=== PATIENT | female | born 1940 | race American Indian/Alaskan Native ===

== ENCOUNTER 2017-05-07 13:59 | Observation (INO) | payer MEDICARE ==
[2017-05-07 14:09] VITALS: BMI 25.9
[2017-05-07] MEDS ORDERED: Dextrose 50% SYRINGE Inj (50 ml) IVP STA (14:25)
[2017-05-07] MEDS ORDERED: Dextrose 50% SYRINGE Inj (50 ml) ONE ×3 (14:27→22:03)
[2017-05-07 14:36] LABS: BASO % 0.4 % (0.0-2.0); EOS # 0.2 K/uL (0.0-0.7); EOS % 2.6 % (0.0-4.0); HEMATOCRIT 33.2 % (34.0-47.0); LYMPH # 1.3 K/uL (1.0-4.3); LYMPH % 15.3 % (20.0-40.0); MEAN CELL VOLUME 88.6 fL (81.0-99.0); MEAN CORPUSCULAR HEMOGLOBIN 29.7 pg (27.0-31.0); MEAN CORPUSCULAR HGB CONC 33.5 g/dL (33.0-37.0); MEAN PLATELET VOLUME 7.3 fL (7.2-11.7); MONO # 0.4 K/uL (0.0-0.8); MONO % 4.2 % (0.0-10.0); NRBC % 0.1 % (0.0-2.0); WHITE BLOOD COUNT 8.7 K/uL (4.8-10.8)
[2017-05-07 14:43] LABS: CHLORIDE 102 mmol/L (98-107)
[2017-05-07 14:44] LABS: POTASSIUM 3.5 mmol/L (3.6-5.2); SODIUM 143 mmol/L (132-148)
[2017-05-07 14:46] LABS: ALB/GLOB RATIO 1.1 (1.0-2.1); ALKALINE PHOSPHATASE 63 U/L (38-126); AST/SGOT 19 U/L (14-36); BILIRUBIN,TOTAL 0.4 mg/dL (0.2-1.3); BLOOD UREA NITROGEN 12 mg/dL (7-17); CARBON DIOXIDE 26 mmol/L (22-30); CHOLESTEROL 111 mg/dL (0-199); GFR AFRICAN-AMERICAN > 60; TOTAL PROTEIN 7.4 g/dL (6.3-8.3)
[2017-05-07 14:47] LABS: ALT/SGPT 20 U/L (9-52)
[2017-05-07 15:01] LABS: GLUCOSE,RANDOM 37 mg/dL (65-105)
--- NOTE | 2017-05-07 15:02 | RAD ---
HISTORY: transient slurred speech COMPARISON: Chest x-ray performed 03/04/17 TECHNIQUE: Chest, one view. FINDINGS: Examination limited by habitus. LUNGS: Increased lucencies especially within the bilateral upper lung aguiar compatible with underlying emphysema. No focal consolidation. 10 mm nodular density at the right lung base favored to reflect nipple shadow. Please note that chest x-ray has limited sensitivity for the detection of pulmonary masses. PLEURA: No significant pleural effusion identified. No definite pneumothorax . CARDIOVASCULAR: Heart size appears within normal limits. Dense atherosclerotic calcifications of the aortic knob. OSSEOUS STRUCTURES: Osseous demineralization. Degenerative changes of the spine and shoulders. VISUALIZED UPPER ABDOMEN: Unremarkable. OTHER FINDINGS: None. IMPRESSION: Emphysematous changes. 10 mm nodular density at the right lung base favored to reflect nipple shadow.
--- NOTE | 2017-05-07 15:03 | CT ---
PROCEDURE: CT HEAD WITHOUT CONTRAST. HISTORY: Code Stroke COMPARISON: None available. TECHNIQUE: Axial computed tomography images were obtained through the head/brain without intravenous contrast. Radiation dose: Total exam DLP = 793.79 mGy-cm. This CT exam was performed using one or more of the following dose reduction techniques: Automated exposure control, adjustment of the mA and/or kV according to patient size, and/or use of iterative reconstruction technique. FINDINGS: HEMORRHAGE: No intracranial hemorrhage. BRAIN: No cortical edema is identified or mass-effect. There is no loss of the corticomedullary differentiation throughout the cerebrum cerebellum or the brainstem fat matter. No suspicious extra-axial collection is identified in the midline brain and appears within normal limits diffusely. Note is made of expansion of the ventricular sulcal and cisternal spaces compatible with mild diffuse cerebral atrophy. Trace fat is seen within the anterior falx inferiorly. VENTRICLES: Unremarkable. No hydrocephalus. CALVARIUM: Unremarkable. PARANASAL SINUSES: Unremarkable as visualized. No significant inflammatory changes. MASTOID AIR CELLS: Unremarkable as visualized. No inflammatory changes. OTHER FINDINGS: None. IMPRESSION: Limited diffuse cerebral atrophy is appreciated. No acute findings are appreciated grossly. Incidental note is made of small amount of fat within the anterior falx inferiorly. Given clinical history, consider follow-up CT or MRI. Findings were discussed with , 05/07/2017 3 p.m..
--- NOTE | 2017-05-07 15:33 | C.PDOC ---
History Of Present Illness 76 year old female presents to the ED for evaluation of slurred speech and left- sided facial droop which was noted earlier today. Patient states she was watching TV at home when she received a phone call from her son. While on the phone, patient's son noted that she was having some trouble speaking; patient's speech seemed slurred and she was having trouble formulating her words. As patient was watching TV, she also noticed slight slurring of her vision. Patient had not attempted to get up, so she is unsure whether she has any numbness/weakness associated with walking. Patient's son remained on the phone with her until he arrived at her residence, after which ambulance was called, and patient was transported to ED for evaluation of a possible stroke. Patient reports her symptoms are slowly improving and denies headache, chest pain, and palpitations at this time. Time Seen by Provider: 05/07/17 14:10 Chief Complaint (Nursing): Weakness/Neurological Deficit History Per: Patient, EMS, Family (son ) History/Exam Limitations: no limitations Onset/Duration Of Symptoms: Unknown Current Symptoms Are (Timing): Still Present Activity At Onset Of Symptoms: Sitting Seizure Or Post-ictal Symptoms: None Additional History Per: Patient, EMS, Family - Symptoms Of CVA Associated Symptoms: Impaired Speech, New Vision Deficit(Left), New Vision Deficit(Right) Past Medical History Reviewed: Historical Data, Nursing Documentation, Vital Signs Vital Signs: Last Vital Signs Temp 97.8 F 05/07/17 14:25 Pulse 93 H 05/07/17 14:25 Resp 24 05/07/17 14:25 BP 162/77 H 05/07/17 14:25 Pulse Ox 100 05/07/17 15:46 - Medical History PMH: Anemia, HTN Denies: Chronic Kidney Disease Surgical History: No Surg Hx - [facility] Procedures ENDOSC POLYPECTOMY OF LG INTEST (02/16/15) ESOPHAGOGASTRODUODENOSCOPY [EGD] W/CLOSED BIOPSY (12/22/14) Family History: States: Unknown Family Hx - Social History Hx Alcohol Use: No Hx Substance Use: No - Immunization History Hx Tetanus Toxoid Vaccination: No Hx Influenza Vaccination: No Hx Pneumococcal Vaccination: No Review Of Systems Eyes: Positive for: Vision Change (slurred ) Cardiovascular: Negative for: Chest Pain, Palpitations Neurological: Positive for: Change in Speech (slurred ). Negative for: Headache Physical Exam - Physical Exam Appears: Non-toxic, No Acute Distress Skin: Normal Color, Warm, Dry Head: Atraumatic, Normacephalic Eye(s): bilateral: Normal Inspection Oral Mucosa: Moist Neck: Supple Chest: Symmetrical, No Deformity, No Tenderness Cardiovascular: Rhythm Regular, No Murmur Respiratory: Normal Breath Sounds, No Rales, No Rhonchi, No Wheezing Extremity: Normal ROM, No Tenderness, Capillary Refill (less than 2 seconds ), No Deformity, No Swelling Neurological/Psych: Oriented x3, No Normal Speech (thickened; able to form sentences ), Normal Cognition Gait: Steady Other Neurological Findings: Facial Palsy (subtle, left-sided ) ED Course And Treatment - Laboratory Results Result Diagrams: 05/07/17 14:27 05/07/17 14:27 Lab Interpretation: Abnormal (Glucosse 37, repeat POC glucose 119 after D50) ECG: Interpreted By Me ECG Rhythm: Sinus Rhythm (with left axis deviation) ECG Interpretation: No Acute Changes O2 Sat by Pulse Oximetry: 100 (on RA) Pulse Ox Interpretation: Normal - Radiology CXR: Viewed By Me, Read By Radiologist CXR Interpretation: Yes: COPD - CT Scan/US Head CT Other Rad Studies (CT/US): Read By Radiologist, Radiology Report Reviewed CT/US Interpretation: No evidence of CVA Progress Note: Code stroke called in ED. CT Head, EKG, CXR, and labs were ordered and reviewed. Aspirin PO administered. Lab results show patient has POC glucose level of 37 mg/dL. D50 IVP administered. On reassessment, patient is resting comfortably, showing no signs of distress and reports that all of her symptoms have resolved Reevaluation Time: 15:50 Reassessment Condition: Improved (Patient is asymptomatic.) - Physician Consult Information Time Consulting Physician Contacted: 15:52 Physician Contacted: Tangela Jennings NIHSS Stroke Scale - Date/Time Evaluation Performed Date Performed: 05/07/17 Time Performed: 14:00 When Was NIHSS Performed: Baseline - How Severe is the Stoke Level of Consciousness: 0=Alert LOC to Questions: 0=Both comments correct LOC to commands: 0=Obeys both correctly Best Gaze: 0=Normal Visual: 0=No visual loss Facial: 1=Minor asymmetry Motor Arm - Left: 0=No drift Motor Arm - Right: 0=No drift Motor Leg - Left: 0=No drift Motor Leg - Right: 0=No drift Limb Ataxia: 0=Absent Sensory: 0=Normal Best Language: 0=No aphasia Dysarthia: 1=Mild to moderate slurring Extinction & Inattention (Neglect): 0=Normal, no object Score: 2 Severity Of Stroke: 1-4= Minor Stroke Disposition - Disposition Disposition: HOSPITALIZED Disposition Time: 15:53 Condition: IMPROVED - POA Present On Arrival: Poor Glycemic Control - Clinical Impression Clinical Impression: Hypoglycemia associated with diabetes - Scribe Statement The provider has reviewed the documentation as recorded by the Scribe (Chandni Jennings) Provider Attestation: All medical record entries made by the Scribe were at my direction and personally dictated by me. I have reviewed the chart and agree that the record accurately reflects my personal performance of the history, physical exam, medical decision making, and the department course for this patient. I have also personally directed, reviewed, and agree with the discharge instructions and disposition.
[2017-05-07 19:17] VITALS: RESP 20
--- NOTE | 2017-05-07 19:47 | CP.PCM.HP ---
Past Patient History - Past Medical History & Family History Past Medical History?: Yes - Past Social History Smoking Status: Heavy Smoker > 10 Cigarettes Daily - CARDIAC Hx Hypertension: Yes - PULMONARY Hx Respiratory Disorders: No - NEUROLOGICAL Hx Neurological Disorder: No - HEENT Hx HEENT Problems: No - RENAL Hx Chronic Kidney Disease: No - ENDOCRINE/METABOLIC Hx Endocrine Disorders: Yes Hx Diabetes Mellitus Type 2: Yes - HEMATOLOGICAL/ONCOLOGICAL Hx Anemia: Yes - INTEGUMENTARY Hx Dermatological Problems: No - MUSCULOSKELETAL/RHEUMATOLOGICAL Hx Musculoskeletal Disorders: Yes Hx Gout: Yes - GASTROINTESTINAL Hx Gastrointestinal Disorders: Yes Other/Comment: CONSTIPATION - GENITOURINARY/GYNECOLOGICAL Hx Genitourinary Disorders: No - PSYCHIATRIC Hx Substance Use: No - SURGICAL HISTORY Hx Surgeries: Yes Hx Hysterectomy: Yes - ANESTHESIA Hx Anesthesia: Yes Hx Anesthesia Reactions: No Hx Malignant Hyperthermia: No Meds Allergies/Adverse Reactions: Allergies Allergy/AdvReac Type Severity Reaction Status Date / Time No Known Allergies Allergy Verified 05/07/17 14:08 Physical Exam - Constitutional Appears: Well - Head Exam Head Exam: ATRAUMATIC, NORMAL INSPECTION, NORMOCEPHALIC - Eye Exam Eye Exam: EOMI, Normal appearance, PERRL Pupil Exam: NORMAL ACCOMODATION, PERRL - ENT Exam ENT Exam: Mucous Membranes Moist, Normal Exam - Neck Exam Neck exam: Positive for: Normal Inspection - Respiratory Exam Respiratory Exam: Decreased Breath Sounds - Cardiovascular Exam Cardiovascular Exam: REGULAR RHYTHM, +S1, +S2 - GI/Abdominal Exam GI & Abdominal Exam: Diminished Bowel Sounds, Soft - Rectal Exam Rectal Exam: Deferred Results - Vital Signs Recent Vital Signs: Last Vital Signs Temp 98.2 F 05/07/17 19:16 Pulse 70 05/07/17 19:16 Resp 20 05/07/17 19:16 BP 137/73 05/07/17 19:16 Pulse Ox 100 05/07/17 19:16 - Labs Result Diagrams: 05/07/17 14:27 05/07/17 14:27 Labs: Laboratory Results - last 24 hr 05/07/17 05/07/17 05/07/17 14:26 14:27 14:27 WBC 8.7 RBC 3.75 L Hgb 11.1 Hct 33.2 L MCV 88.6 MCH 29.7 MCHC 33.5 RDW 16.0 H Plt Count 295 MPV 7.3 Neut % (Auto) 77.5 H Lymph % (Auto) 15.3 L [place] % (Auto) 4.2 Eos % (Auto) 2.6 Baso % (Auto) 0.4 Neut # 6.7 Lymph # 1.3 [place] # 0.4 Eos # 0.2 Baso # 0.0 PT 11.1 INR 1.0 APTT 35 H Sodium Potassium Chloride Carbon Dioxide Anion Gap BUN Creatinine Est GFR ( Amer) Est GFR (Non-Af Amer) POC Glucose (mg/dL) 27 L* Random Glucose Hemoglobin A1c Calcium Total Bilirubin AST ALT Alkaline Phosphatase Troponin I Total Protein Albumin Globulin Albumin/Globulin Ratio Triglycerides Cholesterol LDL Cholesterol Direct HDL Cholesterol Blood Type Antibody Screen 05/07/17 05/07/17 05/07/17 14:27 14:27 14:27 WBC RBC Hgb Hct MCV MCH MCHC RDW Plt Count MPV Neut % (Auto) Lymph % (Auto) [place] % (Auto) Eos % (Auto) Baso % (Auto) Neut # Lymph # [place] # Eos # Baso # PT INR APTT Sodium 143 Potassium 3.5 L Chloride 102 Carbon Dioxide 26 Anion Gap 19 BUN 12 Creatinine 0.7 Est GFR ( Amer) > 60 Est GFR (Non-Af Amer) > 60 POC Glucose (mg/dL) Random Glucose 37 L* Hemoglobin A1c 5.7 Calcium 10.0 Total Bilirubin 0.4 AST 19 ALT 20 Alkaline Phosphatase 63 Troponin I < 0.0120 Total Protein 7.4 Albumin 3.9 Globulin 3.5 Albumin/Globulin Ratio 1.1 Triglycerides 118 Cholesterol 111 LDL Cholesterol Direct 57 HDL Cholesterol 48 Blood Type O POSITIVE Antibody Screen Negative 05/07/17 15:06 WBC RBC Hgb Hct MCV MCH MCHC RDW Plt Count MPV Neut % (Auto) Lymph % (Auto) [place] % (Auto) Eos % (Auto) Baso % (Auto) Neut # Lymph # [place] # Eos # Baso # PT INR APTT Sodium Potassium Chloride Carbon Dioxide Anion Gap BUN Creatinine Est GFR ( Amer) Est GFR (Non-Af Amer) POC Glucose (mg/dL) 119 H Random Glucose Hemoglobin A1c Calcium Total Bilirubin AST ALT Alkaline Phosphatase Troponin I Total Protein Albumin Globulin Albumin/Globulin Ratio Triglycerides Cholesterol LDL Cholesterol Direct HDL Cholesterol Blood Type Antibody Screen
[2017-05-07] MEDS ORDERED: Influenza Vaccine 60 mcg/0.5 mL SYR (4YR UP) IM ONE (21:06)
[2017-05-07] MEDS ORDERED: Potassium Chloride 20 mEq ER Tab PO STA (21:38)
[2017-05-07] MEDS: (Novolog) Insulin Aspart, Recombinant 100 u/ml 10 ml vial SC SCH (22:01)
[2017-05-07] MEDS ORDERED: Dextrose 50% SYRINGE Inj (50 ml) IV STA ×2 (22:03→22:04)
[2017-05-08] MEDS: (Novolog) Insulin Aspart, Recombinant 100 u/ml 10 ml vial SC SCH ×4 (08:54→21:18)
--- NOTE | 2017-05-08 09:30 | CP.PCM.PN ---
Subjective - Date & Time of Evaluation Date of Evaluation: 05/08/17 Time of Evaluation: 08:20 - Subjective Subjective: clinically same Objective - Vital Signs/Intake and Output Vital Signs (last 24 hours): Temp Pulse Resp BP Pulse Ox 98.4 F 75 20 144/78 100 05/08/17 07:40 05/08/17 07:40 05/08/17 07:40 05/08/17 07:40 05/08/17 07:40 - Medications Medications: Current Medications Aspirin (Ecotrin) 81 mg PO DAILY [facility] Enoxaparin Sodium (Lovenox) 40 mg SC DAILY [facility] Famotidine (Pepcid) 20 mg PO DAILY [facility] Hydrochlorothiazide (Microzide) 12.5 mg PO DAILY [facility] Dextrose (Dextrose 10% In Water) 1,000 mls @ 10 mls/hr IV .Q24H [facility] Last Admin: 05/07/17 22:12 Dose: 10 mls/hr Insulin Aspart (Novolog) 0 unit SC ACHS [facility] PRN Reason: Protocol Last Admin: 05/07/17 22:01 Dose: Not Given Lisinopril (Zestril) 10 mg PO DAILY [facility] Pneumococcal Polyvalent Vaccine (Pneumovax 23 Vaccine) 0.5 ml IM .ONCE ONE Stop: 05/09/17 10:01 Rosuvastatin Calcium (Crestor) 10 mg PO HS [facility] Last Admin: 05/07/17 21:53 Dose: 10 mg - Labs Labs: 05/07/17 14:27 05/07/17 14:27 PT 11.1 SECONDS (9.7-12.2) 05/07/17 14:27 INR 1.0 05/07/17 14:27 APTT 35 SECONDS (21-34) H 05/07/17 14:27 - Constitutional Appears: Well - Head Exam Head Exam: ATRAUMATIC, NORMAL INSPECTION, NORMOCEPHALIC - Eye Exam Eye Exam: EOMI, Normal appearance, PERRL Pupil Exam: NORMAL ACCOMODATION, PERRL - ENT Exam ENT Exam: Mucous Membranes Moist, Normal Exam - Neck Exam Neck Exam: Full ROM, Normal Inspection. absent: Lymphadenopathy - Respiratory Exam Respiratory Exam: Decreased Breath Sounds - Cardiovascular Exam Cardiovascular Exam: REGULAR RHYTHM, +S1, +S2 - GI/Abdominal Exam GI & Abdominal Exam: Soft, Diminished Bowel Sounds - Rectal Exam Rectal Exam: Deferred
--- NOTE | 2017-05-08 10:51 | CP.PCM.CON ---
History of Present Illness - History of Present Illness History of Present Illness: I was asked to see patient by Dr Jennings. Patient is a 76 year old female with PMH HTN, hypercholesterolemia, DM who presents with slurred speech. The patient states she was talking to her son when she was noted to have slurred speech. The son made her stay on the phone, and was noted to have difficulty opening the door. Symptoms resolved but the patient was brought to the hospital. The patient denies chest pain and palpitations. Review of Systems - Constitutional Constitutional: absent: As Per HPI, Anorexia, Chills, Daytime Sleepiness, Excessive Sweating, Fatigue, Fever, Frequent Falls, Headache, Increased Appetite , Lethargy, Malaise, Night Sweats, Snoring, Sleep Apnea, Weight Gain, Weight Loss, Weakness, Other - EENT Eyes: absent: As Per HPI, Blind Spots, Blurred Vision, Change in Vision, Decreased Night Vision, Diplopia, Discharge, Dry Eye, Exophthalmos, Floaters, Irritation, Itchy Eyes, Loss of Peripheral Vision, Pain, Photophobia, Requires Corrective Lenses, Sees Flashes, Spots in Vision, Tunnel Vision, Other Visual Disturbances, Loss of Vision, Other Ears: absent: As Per HPI, Decreased Hearing, Ear Discharge, Ear Pain, Tinnitus, Abnormal Hearing, Disequilibrium, Dizziness, Other Nose/Mouth/Throat: absent: As Per HPI, Epistaxis, Nasal Congestion, Nasal Discharge, Nasal Obstruction, Nasal Trauma, Nose Pain, Post Nasal Drip, Sinus Pain, Sinus Pressure, Bleeding Gums, Change in Voice, Dental Pain, Dry Mouth, Dysphagia, Halitosis, Hoarsness, Lip Swelling, Mouth Lesions, Mouth Pain, Odynophagia, Sore Throat, Throat Swelling, Tongue Swelling, Facial Pain, Neck Pain, Neck Mass, Other - Cardiovascular Cardiovascular: absent: As Per HPI, Acrocyanosis, Chest Pain, Chest Pain at Rest , Chest Pain with Activity, Claudication, Diaphoresis, Dyspnea, Dyspnea on Exertion, Edema, Irregular Heart Rhythm, Pain Radiating to Arm/Neck/Jaw, Leg Edema, Leg Ulcers, Lightheadedness, Orthopnea, Palpitations, Paroxysmal Nocturnal Dyspnea, Pedal Edema, Radiating Pain, Rapid Heart Rate, Slow Heart Rate, Syncope, Other - Respiratory Respiratory: absent: As Per HPI, Cough, Dyspnea, Hemoptysis, Dyspnea on Exertion , Wheezing, Snoring, Stridor, Pain on Inspiration, Chest Congestion, Excessive Mucous Production, Change in Mucous Color, Pain with Coughing, Other - Gastrointestinal Gastrointestinal: absent: As Per HPI, Abdominal Pain, Belching, Bloating, Change in Bowel Habits, Change in Stool Character, Coffee Ground Emesis, Constipation, Cramping, Diarrhea, Dyspepsia, Dysphagia, Early Satiety, Excessive Flatus, Fecal Incontinence, Heartburn, Hematemesis, Hematochezia, Loose Stools, Melena, Nausea, Odynophagia, Temesmus, Vomiting, Other - Genitourinary Genitourinary: absent: As Per HPI, Change in Urinary Stream, Difficulty Urinating, Dysuria, Flank Pain, Hematuria, Pyuria, Nocturia, Urinary Incontinence, Urinary Frequency, Urinary Hesitance, Urinary Urgency, Voiding Freq/Small Amts, Freq UTI, Hx Renal/Bladder Calculi, Hx /Renal Surgery, Bladder Distension, Other - Musculoskeletal Musculoskeletal: absent: As Per HPI, Abnormal Gait, Arthralgias, Atrophy, Back Pain, Deformity, Joint Swelling, Limited Range of Motion, Loss of Height, Muscle Cramps, Muscle Weakness, Myalgias, Neck Pain, Numbness, Radiating Pain into Limb, Stiffness, Tingling, Other - Integumentary Integumentary: absent: As Per HPI, Acne, Alopecia, Bleeding Lesions, Change in Hair, Change in Nails, Change in Pigmentation, Changing Lesions, Dry Skin, Erythema, Furuncle, Hirsutism, Lesions, New Lesions, Non-Healing Lesions, Photosensitivity, Pruritus, Rash, Skin Pain, Skin Ulcer, Sores, Striae, Swelling , Unusual Bruising, Wounds, Jaundice, Other - Neurological Neurological: Abnormal Speech - Psychiatric Psychiatric: absent: As Per HPI, Abnormal Sleep Pattern, Anhedonia, Anxiety, Auditory Hallucinations, Behavioral Changes, Change in Appetite, Change in Libido, Confusion, Depression, Difficulty Concentrating, Hallucinations, Homicidal Ideation, Hopelessness, Irritability, Memory Loss, Mood Swings, Panic Attacks, Paranoia, Suicidal Ideation, Visual Hallucinations, Tactile Hallucinations, Other - Endocrine Endocrine: absent: As Per HPI, Change in Body Appearance, Change in Libido, Cold Intolorance, Deepening of Voice, Excessive Sweating, Fatigue, Flushing, Heat Intolorance, Increase in Ring/Shoe/Hat Size, Palpitations, Polydipsia, Polyphagia, Polyuria, Other - Hematologic/Lymphatic Hematologic: absent: As Per HPI, Easy Bleeding, Easy Bruising, Lymphadenopathy, Other Past Patient History - Past Medical History & Family History Past Medical History?: Yes - Past Social History Smoking Status: Light Smoker < 10 Cigarettes Daily - CARDIAC Hx Hypertension: Yes - PULMONARY Hx Respiratory Disorders: No - NEUROLOGICAL Hx Neurological Disorder: No - HEENT Hx HEENT Problems: No - RENAL Hx Chronic Kidney Disease: No - ENDOCRINE/METABOLIC Hx Endocrine Disorders: Yes Hx Diabetes Mellitus Type 2: Yes - HEMATOLOGICAL/ONCOLOGICAL Hx Anemia: Yes - INTEGUMENTARY Hx Dermatological Problems: No - MUSCULOSKELETAL/RHEUMATOLOGICAL Hx Falls: No - GASTROINTESTINAL Hx Gastrointestinal Disorders: Yes Other/Comment: CONSTIPATION - GENITOURINARY/GYNECOLOGICAL Hx Genitourinary Disorders: No - PSYCHIATRIC Hx Substance Use: No - SURGICAL HISTORY Hx Surgeries: Yes Hx Hysterectomy: Yes - ANESTHESIA Hx Anesthesia: Yes Hx Anesthesia Reactions: No Hx Malignant Hyperthermia: No Meds Allergies/Adverse Reactions: Allergies Allergy/AdvReac Type Severity Reaction Status Date / Time No Known Allergies Allergy Verified 05/07/17 14:08 - Medications Medications: Current Medications Aspirin (Ecotrin) 81 mg PO DAILY [facility] Enoxaparin Sodium (Lovenox) 40 mg SC DAILY [facility] Famotidine (Pepcid) 20 mg PO DAILY [facility] Hydrochlorothiazide (Microzide) 12.5 mg PO DAILY [facility] Dextrose (Dextrose 10% In Water) 1,000 mls @ 10 mls/hr IV .Q24H [facility] Last Admin: 05/07/17 22:12 Dose: 10 mls/hr Insulin Aspart (Novolog) 0 unit SC ACHS [facility] PRN Reason: Protocol Last Admin: 05/07/17 22:01 Dose: Not Given Lisinopril (Zestril) 10 mg PO DAILY [facility] Pneumococcal Polyvalent Vaccine (Pneumovax 23 Vaccine) 0.5 ml IM .ONCE ONE Stop: 05/09/17 10:01 Rosuvastatin Calcium (Crestor) 10 mg PO [facility] Last Admin: 05/07/17 21:53 Dose: 10 mg Physical Exam - Constitutional Appears: Non-toxic - Head Exam Head Exam: NORMAL INSPECTION - Eye Exam Eye Exam: Normal appearance - ENT Exam ENT Exam: Mucous Membranes Moist - Neck Exam Neck exam: Positive for: Full Rom - Respiratory Exam Respiratory Exam: NORMAL BREATHING PATTERN - Cardiovascular Exam Cardiovascular Exam: REGULAR RHYTHM - GI/Abdominal Exam GI & Abdominal Exam: Normal Bowel Sounds - Rectal Exam Rectal Exam: Deferred - Extremities Exam Extremities exam: Positive for: pedal pulses present - Back Exam Back exam: NORMAL INSPECTION - Neurological Exam Neurological exam: Alert, Oriented x3 - Psychiatric Exam Psychiatric exam: Normal Affect - Skin Skin Exam: Normal Color Results - Vital Signs Recent Vital Signs: Last Vital Signs Temp 98.4 F 05/08/17 07:40 Pulse 75 05/08/17 07:40 Resp 20 05/08/17 07:40 BP 144/78 05/08/17 07:40 Pulse Ox 100 05/08/17 07:40 - Labs Result Diagrams: 05/07/17 14:27 05/07/17 14:27 Labs: Laboratory Results - last 24 hr 05/07/17 05/07/17 05/07/17 14:26 14:27 14:27 WBC 8.7 RBC 3.75 L Hgb 11.1 Hct 33.2 L MCV 88.6 MCH 29.7 MCHC 33.5 RDW 16.0 H Plt Count 295 MPV 7.3 Neut % (Auto) 77.5 H Lymph % (Auto) 15.3 L Phillips % (Auto) 4.2 Eos % (Auto) 2.6 Baso % (Auto) 0.4 Neut # 6.7 Lymph # 1.3 Phillips # 0.4 Eos # 0.2 Baso # 0.0 PT 11.1 INR 1.0 APTT 35 H Sodium Potassium Chloride Carbon Dioxide Anion Gap BUN Creatinine Est GFR ( Amer) Est GFR (Non-Af Amer) POC Glucose (mg/dL) 27 L* Random Glucose Hemoglobin A1c Calcium Total Bilirubin AST ALT Alkaline Phosphatase Troponin I Total Protein Albumin Globulin Albumin/Globulin Ratio Triglycerides Cholesterol LDL Cholesterol Direct HDL Cholesterol Blood Type Antibody Screen 05/07/17 05/07/17 05/07/17 14:27 14:27 14:27 WBC RBC Hgb Hct MCV MCH MCHC RDW Plt Count MPV Neut % (Auto) Lymph % (Auto) Phillips % (Auto) Eos % (Auto) Baso % (Auto) Neut # Lymph # Phillips # Eos # Baso # PT INR APTT Sodium 143 Potassium 3.5 L Chloride 102 Carbon Dioxide 26 Anion Gap 19 BUN 12 Creatinine 0.7 Est GFR ( Amer) > 60 Est GFR (Non-Af Amer) > 60 POC Glucose (mg/dL) Random Glucose 37 L* Hemoglobin A1c 5.7 Calcium 10.0 Total Bilirubin 0.4 AST 19 ALT 20 Alkaline Phosphatase 63 Troponin I < 0.0120 Total Protein 7.4 Albumin 3.9 Globulin 3.5 Albumin/Globulin Ratio 1.1 Triglycerides 118 Cholesterol 111 LDL Cholesterol Direct 57 HDL Cholesterol 48 Blood Type O POSITIVE Antibody Screen Negative 05/07/17 05/07/17 05/07/17 15:06 21:58 22:22 WBC RBC Hgb Hct MCV MCH MCHC RDW Plt Count MPV Neut % (Auto) Lymph % (Auto) Phillips % (Auto) Eos % (Auto) Baso % (Auto) Neut # Lymph # Phillips # Eos # Baso # PT INR APTT Sodium Potassium Chloride Carbon Dioxide Anion Gap BUN Creatinine Est GFR ( Amer) Est GFR (Non-Af Amer) POC Glucose (mg/dL) 119 H 23 L* 273 H Random Glucose Hemoglobin A1c Calcium Total Bilirubin AST ALT Alkaline Phosphatase Troponin I Total Protein Albumin Globulin Albumin/Globulin Ratio Triglycerides Cholesterol LDL Cholesterol Direct HDL Cholesterol Blood Type Antibody Screen 05/07/17 05/08/17 05/08/17 23:55 00:45 01:50 WBC RBC Hgb Hct MCV MCH MCHC RDW Plt Count MPV Neut % (Auto) Lymph % (Auto) Phillips % (Auto) Eos % (Auto) Baso % (Auto) Neut # Lymph # Phillips # Eos # Baso # PT INR APTT Sodium Potassium Chloride Carbon Dioxide Anion Gap BUN Creatinine Est GFR ( Amer) Est GFR (Non-Af Amer) POC Glucose (mg/dL) 105 90 100 Random Glucose Hemoglobin A1c Calcium Total Bilirubin AST ALT Alkaline Phosphatase Troponin I Total Protein Albumin Globulin Albumin/Globulin Ratio Triglycerides Cholesterol LDL Cholesterol Direct HDL Cholesterol Blood Type Antibody Screen 05/08/17 05/08/17 02:45 07:11 WBC RBC Hgb Hct MCV MCH MCHC RDW Plt Count MPV Neut % (Auto) Lymph % (Auto) Phillips % (Auto) Eos % (Auto) Baso % (Auto) Neut # Lymph # Phillips # Eos # Baso # PT INR APTT Sodium Potassium Chloride Carbon Dioxide Anion Gap BUN Creatinine Est GFR ( Amer) Est GFR (Non-Af Amer) POC Glucose (mg/dL) 146 H 122 H Random Glucose Hemoglobin A1c Calcium Total Bilirubin AST ALT Alkaline Phosphatase Troponin I Total Protein Albumin Globulin Albumin/Globulin Ratio Triglycerides Cholesterol LDL Cholesterol Direct HDL Cholesterol Blood Type Antibody Screen - EKG Data EKG Interpreted by: Myself EKG shows normal: Sinus rhythm Assessment & Plan (1) Dysarthria Assessment and Plan: patient has risk factors for CVA. I discussed risk factors. I will obtain echocardiogram. continue statin therapy. Status: Acute (2) Hypercholesterolemia Assessment and Plan: statin therapy Status: Acute
[2017-05-08] MEDS: Enoxaparin 40 mg Syringe SC SCH (10:55)
--- NOTE | 2017-05-08 15:34 | CARD ---
APPROVED REPORT EKG Measurement Heart [id number] <Conclusion> Normal sinus rhythm Left axis deviation Abnormal ECG
--- NOTE | 2017-05-08 16:15 | CON ---
NEUROLOGY CONSULTATION CHIEF COMPLAINT: Slurred speech. HISTORY OF PRESENT ILLNESS: This is a 76-year-old woman with past medical history of type 2 diabetes mellitus, hypertension, COPD, chronic smoker, who presented to the hospital, because she was watching TV at home when received a phone call from her son. While she was on the phone, she noted to have some trouble speaking, getting out her words and slurring and felt difficult to form any words and felt lightheaded and generalized weakness; and therefore, came to the hospital for further evaluation. It was found that she had a blood sugar of 27 and then was given D50 now which her blood sugars are normalized. She continues to smoke. No focal weakness of the extremity. She has evidence of diabetic peripheral neuropathy on examination. CAT scan of the head showed no acute intracranial abnormalities. No pronator drift seen on the neuro exam. ALLERGIES: NO KNOWN DRUG ALLERGIES. SOCIAL HISTORY: No illicit drug use. No EtOH abuse. She is a chronic smoker. FAMILY HISTORY: Noncontributory. PAST MEDICAL HISTORY: Hypertension, diabetes type 2, COPD, hyperlipidemia. REVIEW OF SYSTEMS: A 14-point review of system is negative except as in the HPI. PHYSICAL EXAMINATION: VITAL SIGNS: Temperature 98.4, pulse rate 75, blood pressure 144/78, respirations 20, oxygen saturation 97% via room air. GENERAL: The patient sitting up in bed, in no acute distress. HEENT: Atraumatic and normocephalic. PERRLA. Extraocular muscles are intact. NECK: Supple. No JVD. No adenopathy noted. LUNGS: Clear to auscultation. No adventitious sounds. HEART: S1 and S2, normal rate and rhythm. No murmurs, rubs, or gallops. ABDOMEN: Soft, nontender, and nondistended. Bowel sounds are present. EXTREMITIES: No clubbing. No cyanosis. Peripheral pulses are 2+ felt bilaterally. NEUROLOGIC: The patient is alert, oriented to person, place, month and years. Speech is fluent without any errors. Cranial nerves II through XII are intact. Motor exam: Moves all extremities equally. No pronator drift seen. Sensory exam: Decreased light touch, pinprick up to calves bilaterally. Decreased vibration of the toes. DTRs are 2+ throughout, 1 at the ankles and knees. Coordination: [id number] intact. Gait is deferred for now. LABORATORY DATA: Today's blood sugar is 199. ASSESSMENT AND PLAN: This is an 76-year-old woman with history of type 2 diabetes mellitus, dyslipidemia, chronic obstructive pulmonary disease, chronic smoker, came in with slurring of speech, difficult to form any words, found to be hypoglycemic with a blood sugar of 27, was given amp of D50 and now is doing much better. No further slurring of speech. No focal weakness of the extremities. Her symptoms are likely secondary to transient hypoglycemic event causing stroke-like symptoms. At this time, I recommend; 1. Keep blood sugars between 140 to 180. 2. Aspirin 81 mg p.o. daily as well as Crestor 10 mg p.o. at bedtime for a stroke prevention. 3. Diabetic education given. 4. Monitor electrolytes, correct accordingly and continue current present medical management. Thank you for this consult. Rico Perez MD
[2017-05-08] MEDS: Potassium Chloride 20 mEq ER Tab PO SCH (17:00)
[2017-05-09] MEDS: (Novolog) Insulin Aspart, Recombinant 100 u/ml 10 ml vial SC SCH (07:24)
[2017-05-09 07:25] VITALS: BP 144/78; PULSE 78; TEMP 98.6; O2SAT 100
[2017-05-09] MEDS ORDERED: Dextrose 50% SYRINGE Inj (50 ml) IV PRN (07:26)
[2017-05-09] MEDS ORDERED: Glucagon Recombinant 1 mg Inj IM PRN (07:26)
--- NOTE | 2017-05-09 07:28 | CP.PCM.PN ---
Subjective - Date & Time of Evaluation Date of Evaluation: 05/09/17 Time of Evaluation: 09:34 - Subjective Subjective: Patient seen and examiined at bedside this AM; she is feeling 100% like her regular self and would like to go home. The patient is stable for discharge. Objective - Vital Signs/Intake and Output Vital Signs (last 24 hours): Temp Pulse Resp BP Pulse Ox 98.5 F 86 20 136/75 98 05/09/17 00:00 05/09/17 00:00 05/09/17 00:00 05/09/17 00:00 05/09/17 00:00 Intake and Output: 05/09/17 05/09/17 06:59 18:59 Intake Total 380 Balance 380 - Medications Medications: Current Medications Aspirin (Ecotrin) 81 mg PO DAILY [facility] Last Admin: 05/08/17 10:54 Dose: 81 mg Enoxaparin Sodium (Lovenox) 40 mg SC DAILY [facility] Last Admin: 05/08/17 10:55 Dose: 40 mg Famotidine (Pepcid) 20 mg PO DAILY [facility] Last Admin: 05/08/17 10:54 Dose: 20 mg Hydrochlorothiazide (Microzide) 12.5 mg PO DAILY [facility] Last Admin: 05/08/17 10:54 Dose: 12.5 mg Dextrose (Dextrose 10% In Water) 1,000 mls @ 10 mls/hr IV .Q24H [facility] Last Admin: 05/07/17 22:12 Dose: 10 mls/hr Insulin Aspart (Novolog) 0 unit SC ACHS [facility] PRN Reason: Protocol Last Admin: 05/08/17 21:18 Dose: Not Given Lisinopril (Zestril) 10 mg PO DAILY [facility] Last Admin: 05/08/17 10:54 Dose: 10 mg Pneumococcal Polyvalent Vaccine (Pneumovax 23 Vaccine) 0.5 ml IM .ONCE ONE Stop: 05/09/17 10:01 Potassium Chloride (K-Dur 20 Meq Er Tab) 20 meq PO DAILY [facility] Last Admin: 05/08/17 17:00 Dose: 20 meq Rosuvastatin Calcium (Crestor) 10 mg PO HS [facility] Last Admin: 05/08/17 21:15 Dose: 10 mg - Labs Labs: 05/07/17 14:27 05/07/17 14:27 PT 11.1 SECONDS (9.7-12.2) 05/07/17 14:27 INR 1.0 05/07/17 14:27 APTT 35 SECONDS (21-34) H 05/07/17 14:27 - Constitutional Appears: Well, Non-toxic - Head Exam Head Exam: ATRAUMATIC - Eye Exam Eye Exam: EOMI Pupil Exam: PERRL - ENT Exam ENT Exam: Mucous Membranes Moist - Neck Exam Neck Exam: Full ROM - Respiratory Exam Respiratory Exam: Clear to Ausculation Bilateral - Cardiovascular Exam Cardiovascular Exam: REGULAR RHYTHM - GI/Abdominal Exam GI & Abdominal Exam: Soft - Rectal Exam Rectal Exam: Deferred - Extremities Exam Extremities Exam: Full ROM. absent: Calf Tenderness - Back Exam Back Exam: absent: CVA tenderness (L), CVA tenderness (R) - Neurological Exam Neurological Exam: Alert, Awake, CN II-XII Intact, Normal Gait, Oriented x3 - Psychiatric Exam Psychiatric exam: Normal Affect Assessment and Plan - Assessment and Plan (Free Text) Assessment: 76yo F admitted for syncopal episode Syncopal Episode -blood sugar 27 on arrival; mentation improved after glucose -Dr. Jauregui; Neurology; states transient episode of weakness 2/2 to hypoglycemia -c/w aspirin and statin for primary stroke prevention and glucose control -Head CT negative for any acute changes Diabetes; chronic -RISS -hypoglycemia protocol HLD; chronic -c/w crestor HTN; chronic -c/w lisinopril and hctz Prophylaxis -Lovenox -Pepcid -Heart Healthy Diet All management as per Dr. Linh Jennings The patient is stable for discharge as per Dr. Linh Jennings. She can resume all of her home meds from before. Patient was explained to eat more frequent but small meals throughout the day because she has diabetes and her medicine can lower her blood sugar (especially the glipizide) Patient verbalized understanding. She will need to see her PMD within the week. -her cat scan recommended a follow up cat scan if symptoms persist; however patient is back to baseline
[2017-05-09] MEDS ORDERED: Influenza Vaccine 60 mcg/0.5 mL SYR (4YR UP) IM ONE (10:00)
[2017-05-09] MEDS ORDERED: Pneumococcal 23-Valent Vaccine IM ONE (10:00)
[2017-05-09] MEDS: Potassium Chloride 20 mEq ER Tab PO SCH (10:59)
[2017-05-09] MEDS: Enoxaparin 40 mg Syringe SC SCH (10:59)
== END 2017-05-09 12:34 | disposition home or self-care (01) ==
LOC: C.ER 13:59 → C.9E 15:57 → C.3T 18:17
PROVIDERS: ADMIT Internal Medicine Nephrology; ATTEND Internal Medicine Nephrology
DX: E11.649 Type 2 diabetes mellitus with hypoglycemia without coma (principal); D64.9 Anemia, unspecified; I12.9 Hypertensive chronic kidney disease with stage 1 through stage 4 chronic kidney disease, or unspecified chronic kidney disease; N18.9 Chronic kidney disease, unspecified; F17.210 Nicotine dependence, cigarettes, uncomplicated
CPT/HCPCS: 70450; 71010; 80053; 80061; 82948; 83036; 84484; 85025; 85610; 85730; 86850; 86900; 92610; 93005; 96374; 97116; 97162; 99285; G0378; G8978; G8979; G8996; G8997; G8998; J1650

== ENCOUNTER 2017-09-11 06:20 | Day surgery (SDC) | payer MEDICARE ==
[2017-09-11 06:54] VITALS: BMI 25.0
--- NOTE | 2017-09-11 08:49 | CP.SDSHP ---
Same Day Surgery H & P - History Proposed Procedure: COLONSCOPY Pre-Op Diagnosis: SEE NOTES - Previous Medical/Surgical History Cardiac: Hypertension Endocrine/Metabolic: Diabetes, Other Misc: Other Pain: 4.Moderate Pain - Allergies Allergies: Allergies No Known Allergies Allergy (Verified 09/11/17 06:54) - Physical Exam General Appearance: N Vital Signs: Vital Signs 09/11/17 07:09 Temperature 97.2 F L Pulse Rate 90 Respiratory 20 Rate Blood Pressure 135/69 O2 Sat by Pulse 98 Oximetry Mental Status: Alert & Oriented x3 Neuro: WNL Heart: Other Lungs: WNL GI: Other - {Optional Preform as Required} Breast: WNL Abdomen: Other Rectal: Other Integument: WNL : WNL Ortho: Other ENT: WNL - Impression Pt. Evaluated Today:Candidate for Anesthesia & Procedure: Yes - Date & Time Time: 08:49 Short Stay Discharge - Short Stay Discharge Admitting Diagnosis/Reason for Visit: CHANGE OF BOWEL MOVEMENT, ANEMIA Disposition: HOME/ ROUTINE
[2017-09-11] MEDS ORDERED: Propofol 10 mg/ml Inj (20 ML) ONE ×2 (09:24→09:38)
[2017-09-11] MEDS: Lactated Ringer's 1,000 ML IV ONE ×2 (09:25→09:41)
[2017-09-11] MEDS ORDERED: Lactated Ringer's 1,000 ML IV ONE (09:25)
[2017-09-11] MEDS ORDERED: Glucagon Recombinant 1 mg Inj ONE ×2 (09:29→09:30)
[2017-09-11] MEDS ORDERED: Belladonna-Phenobarbital PO ONE (10:05)
[2017-09-11 10:12] VITALS: TEMP 97.8; O2SAT 100
[2017-09-11 12:35] VITALS: BP 127/68; PULSE 87; RESP 18
== END 2017-09-11 10:50 | disposition home or self-care (01) ==
LOC: C.ENDO 06:20
PROVIDERS: ATTEND Specialist
DX: K57.30 Diverticulosis of large intestine without perforation or abscess without bleeding (principal); K64.8 Other hemorrhoids; R19.4 Change in bowel habit; D64.9 Anemia, unspecified; R10.84 Generalized abdominal pain; E11.9 Type 2 diabetes mellitus without complications
CPT/HCPCS: 45380; 82948; 88305; J1610; J2704